=== PATIENT | female | born 2000 | race Caucasian/White ===

== ENCOUNTER 2024-10-02 17:41 | Emergency (ER) | payer SELFPAY ==
[~2024-10-02] VITALS: Ht 170.2 cm; Wt 80.5 kg
[2024-10-02 17:53] VITALS: BP 139/79; TEMP 99.8; O2SAT 96
[2024-10-02] MEDS ORDERED: COLD30LI PO (18:07)
== END 2024-10-02 20:00 | disposition left against medical advice (07) ==
LOC: M ED 17:41
DX: Z53.21 Procedure and treatment not carried out due to patient leaving prior to being seen by health care provider (principal)

== ENCOUNTER 2024-11-29 20:11 | Emergency (ER) | payer MEDICAID, SELFPAY ==
[~2024-11-29] VITALS: Ht 170.2 cm; Wt 84.5 kg
[~2024-11-29 20:11] MED LIST: COLD30LI PO
[2024-11-29 21:40] LABS: HCG, SERUM QUALITATIVE NEGATIVE (NEGATIVE)
[2024-11-29 22:59] VITALS: BP 121/75; TEMP 98.7; O2SAT 98
== END 2024-11-29 22:53 | disposition home or self-care (01) ==
LOC: M ED 20:11
DX: Z32.02 Encounter for pregnancy test, result negative (principal)